=== PATIENT | male | born 1965 | race Caucasian/White ===

== ENCOUNTER → 2019-02-25 | Day surgery (SDC) | payer OTHER ==
[~2019-02-25] MED LIST: ACETAMINOPHEN 1000 MG/100 ML IV ONE; ACETAMINOPHEN/CODEINE 300MG - 30MG TAB ONE; ADVIL200 MG PO; CEFAZOLIN SOD 1 GM/NS 50ML 50 ML IV ONE; DEXAMETHASONE SOD PHOS INJ 4 MG/ML VIAL ONE; FENTANYL CITRATE/PF 100MCG/2 ML INJ ONE; LIDOCAINE HCL 2% LOCAL INJ 5 ML SDV VIAL INJ ONE; MIDAZOLAM HCL 2 MG/2 ML VIAL ONE; MULTI-VITAMIN1 EACH PO; ONDANSETRON HCL INJ 2MG/ML 2ML 2 MG/ML VIAL ONE; PROPOFOL IV EMULSION 10 MG/ML 20 ML VIAL ONE; SEVOFLURANE INHAL SOLN 250 ML PEN BTL ONE
--- NOTE | 2019-02-25 07:10 | NUR ---
SPIRITUAL CARE - Pre-Surgery Assessment: Pt in bed. Pt's girlfriend at bedside. Pt reported supportive attention from family and friends. Intervention: I provided pastoral presence, hospitality, and sympathetic listening. I acquainted pt with availability of surveillance dual rate officer while hospitalized. Outcome: Pt expressed appreciation for visit. No need for follow up indicated at this time. CARISSA Lehmanlain Spiritual Care Department O: [phone] Pager: [phone] ([phone] number calling from)
[2019-02-25 09:55] VITALS: BP 122/84
--- NOTE | 2019-02-25 10:33 | Operative Report ---
DATE OF PROCEDURE: 02/25/2019 SURGEON: Radu Thomson MD STACK SUPERVISOR: Maxx Hines, certified PA. PREOPERATIVE DIAGNOSIS: Right knee medial meniscal tear. POSTOPERATIVE DIAGNOSIS: Right knee medial meniscal tear. PROCEDURES: Right knee arthroscopy, partial medial meniscectomy. INDICATIONS: The patient is a 53-year-old gentleman, who injured his right knee, snow skating about 8 months ago. He was seen by a doctor in [place], who initiated workup. He then got busy with work and presented to [place] months later. He continued to complain of mechanical symptoms along the inner aspect of his right knee. His clinic exam and MRI findings were consistent with a complex tear of the medial meniscus. He would like to proceed with definitive intervention. The risks and benefits of arthroscopy were explained. He stated he understood and wished to proceed. PROCEDURE IN DETAIL: The patient was brought to the operating room and placed under general anesthetic. His right lower extremity was prepped and draped in a sterile manner. He received prophylactic antibiotics in the holding area. The extremity had been exsanguinated and a proximal tourniquet was inflated to 300 mmHg. Standard arthroscopy portals were established. The knee was insufflated with sterile saline and systematically inspected. The patellofemoral groove was pristine. There was no synovitis. The medial and lateral gutters were inspected and were free of loose bodies. The medial compartment revealed well-preserved articular surfaces of the medial femoral condyle and medial tibial plateau. There was a complex tear of the posterior horn of the medial meniscus. This was probed and photographed. The cruciate ligaments and lateral compartment were unremarkable. A combination of a biting forceps and a mechanical shaver were used to debride the medial meniscus back to a stable margin. Before and after photographs were taken. The knee was then thoroughly irrigated with sterile saline. The arthroscopic instruments were removed. The portal incisions were closed with nylon stitches. There was no blood loss and all needle and sponge counts were correct. Radu Thomson MD DR/MCKAY /[id number]
== END | disposition home or self-care (01) ==
LOC: OR 05:24
PROVIDERS: ATTEND Specialist
DX: S83.231A Complex tear of medial meniscus, current injury, right knee, initial encounter (principal); F17.210 Nicotine dependence, cigarettes, uncomplicated; X58.XXXA Exposure to other specified factors, initial encounter; Y93.79 Activity, other specified sports and athletics; Y99.8 Other external cause status; Z01.812 Encounter for preprocedural laboratory examination
CPT/HCPCS: 29881; 93005; J0131; J0690; J1100; J2001; J2250; J2405; J2704; J3010